=== PATIENT | male | born 1975 | race Caucasian/White ===

== ENCOUNTER 2022-05-03 21:43 | Emergency (ER) | payer BC ==
[~2022-05-03] VITALS: Ht 182.9 cm; Wt 102.1 kg
--- NOTE | 2022-05-03 22:11 | NUR ---
DR. LAW SCHMID AT PT'S BEDSIDE FOR EVAL
[2022-05-03] MEDS ORDERED: ONDANSETRON HCL/PF 4 MG/2 ML VIAL ONE (22:16)
[2022-05-03] MEDS ORDERED: KETOROLAC TROMETHAMINE INJ 30 MG/ML VIAL IV ONE (22:30)
[2022-05-03] MEDS ORDERED: IV NS 0.9% 1,000 ML BAG IV ONE (22:30)
[2022-05-03] MEDS ORDERED: ONDANSETRON HCL/PF 4 MG/2 ML VIAL IVP ONE (22:30)
--- NOTE | 2022-05-03 22:31 | NUR ---
mariam, from home c/o abd and groin hernia since Jan 2022. 01/20 ps. PT A/OX4. TOLERATING R/A WELL WITH NO RESP DISTRESS. CONNECTED PT TO POX AND MONITOR. SAFETY MEASURES IN PLACE.
--- NOTE | 2022-05-03 22:36 | NUR ---
RFA #18G S/L BLOOD COLLECTED AND SENT TO LAB
[2022-05-03 22:43] LABS: BASOPHILS % (AUTO) 1.5 % (0.0-2.0); HEMATOCRIT 29 % (39-51); HEMOGLOBIN 8.9 g/dL (13.5-17.5); LYMPHOCYTES # (AUTO) 0.5 K/uL (0.8-4.8); LYMPHOCYTES % (AUTO) 16.3 % (20.0-44.0); MEAN CORPUSCULAR HGB CONC 31 g/dl (31.0-36.0); MEAN CORPUSCULAR VOLUME 74 fL (80-96); MONOCYTES # (AUTO) 0.4 K/uL (0.1-1.30); MONOCYTES % (AUTO) 14.7 % (2.0-12.0); NEUTROPHILS % (AUTO) 65.5 % (43.0-81.0); RED BLOOD CELL COUNT(AUTO) 3.88 MIL/uL (4.5-6.0); WHITE BLOOD COUNT (AUTO) 3.1 K/uL (4.3-11.0)
[2022-05-03] MEDS ORDERED: KETOROLAC TROMETHAMINE 15 MG/ML VIAL ONE (22:45)
--- NOTE | 2022-05-03 22:48 | NUR ---
PT TAKEN TO CT VIA TRAN
[2022-05-03 22:57] LABS: ALBUMIN 2.8 g/dL (3.4-5.0); BILIRUBIN,DIRECT 0.4 mg/dL (0.0-0.2); BILIRUBIN,TOTAL 1.1 mg/dL (0.2-1.0); CALCIUM, SERUM 8.5 mg/dL (8.5-10.1); CREATININE 0.7 mg/dL (0.6-1.3); POTASSIUM 3.6 mmol/L (3.5-5.1); TOTAL PROTEIN, SERUM 6.1 g/dL (6.4-8.2)
[2022-05-03 23:04] LABS: PLATELET COUNT (AUTO) 30 K/uL (150-450)
--- NOTE | 2022-05-03 23:05 | NUR ---
PT RETURNED TO ER BED [address]
[2022-05-03] MEDS: TRAMADOL HCL 50 MG TABLET PO ONE ×2 (23:23→23:39)
[2022-05-03] MEDS ORDERED: TRAMADOL HCL 50 MG TABLET ONE (23:33)
[2022-05-04 00:30] LABS: BAND % (MANUAL) 6 % (0.0-5.0); BASOPHILS % (MANUAL) 0 % (0.0-2.0); EOSINOPHILS % (MANUAL) 5 % (0-4); LYMPHOCYTES % (MANUAL) 19 % (16-48); MONOCYTES % (MANUAL) 11 % (0-11.0); NEUTROPHILS % (MANUAL) 59 (42-76)
--- NOTE | 2022-05-04 00:48 | NUR ---
Patient discharged to home in stable condition. Written and verbal after care instructions given. Patient verbalizes understanding of instruction. IV removed. Catheter intact and site benign. Pressure and 4x4 applied to site. No bleeding noted.
[2022-05-04 00:49] VITALS: BP 113/61
== END 2022-05-04 00:50 | disposition home or self-care (01) ==
LOC: ER 21:57
DX: R10.31 Right lower quadrant pain (principal); K43.9 Ventral hernia without obstruction or gangrene; K40.90 Unilateral inguinal hernia, without obstruction or gangrene, not specified as recurrent; E11.9 Type 2 diabetes mellitus without complications; Z88.8 Allergy status to other drugs, medicaments and biological substances
CPT/HCPCS: 99285; 74176; 96374; 96361; 85025; 80048; 83605; 83690; 80076; 36415; 85007; J2405; J7030; J1885

== ENCOUNTER 2022-07-01 21:01 | Emergency (ER) | payer BC ==
[~2022-07-01] VITALS: Ht 182.9 cm; Wt 102.1 kg
--- NOTE | 2022-07-01 21:45 | NUR ---
[id number] from reconnected recovery, slip and fall, fell fwd, c/o stomach pain hx of hernia, denies LOC. PLACE IN BED, AAOX4, BREATHING UNLABORED SATURATING AT 97%RA
--- NOTE | 2022-07-01 22:46 | NUR ---
PATIENT TAKEN TO CT VIA GURNEY.
--- NOTE | 2022-07-01 23:35 | NUR ---
Patient discharged to home in stable condition. Written and verbal after care instructions given. Patient verbalizes understanding of instruction.
[2022-07-01 23:53] VITALS: BP 130/75
== END 2022-07-01 23:35 | disposition home or self-care (01) ==
LOC: ER 21:02
DX: K43.9 Ventral hernia without obstruction or gangrene (principal); E11.9 Type 2 diabetes mellitus without complications; Z88.8 Allergy status to other drugs, medicaments and biological substances